=== PATIENT | female | born 2000 | race Caucasian/White ===

== ENCOUNTER 2024-02-18 13:35 | Emergency (ER) | payer BC, SELFPAY ==
[2024-02-18 14:30] VITALS: BP 127/81; PULSE 80; RESP 20; TEMP 36.8; O2SAT 97; BMI 24.8
[2024-02-18 14:39] LABS: Apearance,Urine Clear (Clear); Color,Urine Yellow (Yellow)
[2024-02-18 14:40] LABS: Bilirubin,Urine Negative (Negative); Blood, Urine 3+ (Negative); Glucose,Urine (UA) Negative (Negative); Ketones,Urine Negative (Negative); Protein,Urine Negative (Negative); Urobilinogen,Urine 0.2 EU/dl (0.2)
[2024-02-18 14:41] LABS: UTC Leukocyte Esterase,Urine 2+ (Negative); UTC Nitrate,Urine Negative (Negative)
--- NOTE | 2024-02-18 15:03 | ED_ITS ---
Discharge Plan Disposition Patient Disposition: Home, Self-Care Condition: Good Prescriptions Prescriptions: New cefdinir 300 mg capsule 300 mg PO BID Qty: 20 0RF phenazopyridine [Pyridium] 200 mg tablet 200 mg PO Q8H 2 Days Qty: 6 0RF No Action colestipol 1 gram tablet 1 g PO DAILY Referrals Follow up/Referrals: Dianna Zarco [Primary Care Provider] - See instructions Activity Restrictions/Add. Instructions Additional Instructions/Restrictions: *Increase fluids. Water not Soda or Tea *Start antibiotic immediately and be sure to take as ordered for the FULL length of time although you should start to see improvement over the next 48 hours *Pyridium as needed Remember this medication will turn your urine . This is normal but it will stain what ever it gets on *You should not use Pyridium for more than 48 hours. If so , follow up with your primary physician to review urine culture and ensure that antibiotic is adequate for infection *Be SURE to follow up anytime for new or worsening symptoms with your family doctor. AND in 48 hours for urine culture results with your family doctor, if you do not have a doctor then you may call back to the [facility] for urine culture results and further treatment. We do recommend that you choose and establish care with a Primary Care Physician. ?AND follow up with them ?in 10-14 days to repeat UA to ensure infection is resolved and blood no longer present *Be sure to let your PCP know that we sent urine cultures from the [facility] so they can follow up to ensure that you area the on the correct antibiotic Call your doctor office and make appointment for 48 hours (2 days from today) ?to follow up and get the results of your urine culture and further treatment Clinical Impressions Clinical Impression: UTI (urinary tract infection) Instructions Patient Instructions: DI for Urinary Tract Infection (UTI), Urinary Tract Infection, Cefdinir, Phenazopyridine Print Language Print Language: Nepali Discharge ED Provider: Jodi Jeronimo [facility] HPI General Stated complaint: frequency,burning with urination Mode of Arrival: Ambulatory Source of Information: Patient Limitations: No Limitations Time Seen by Provider: 02/18/24 15:03 Description of Symptoms (Recalled from Triage Doc. by RN): PATIENT C/O ACHE TO BLADDER AREA THAT STARTED TODAY HEENT Symptoms (Recalled from RN notes): No Resp Symptoms (Recalled from RN notes): No Skin Symptoms (Recalled from RN notes): No MS Symptoms (Recalled from RN notes): No Functional Status (Recalled from RN notes): WNL History of Present Illness Provider Complaint: Patient states that she has been feeling achy a little in her back and having urgency, frequency and burning with urination so she came in to get checked worried she may have a UTI Denies hx of kidney stones Related Data Home Medications ?Medication ?Instructions ?Recorded ?Confirmed colestipol 1 gram tablet 1 g PO DAILY 02/18/24 02/18/24 Previous Rx's ?Medication ?Instructions ?Recorded cefdinir 300 mg capsule 300 mg PO BID #20 caps 02/18/24 phenazopyridine 200 mg tablet 200 mg PO Q8H pain 2 days #6 tabs 02/18/24 (Pyridium) Allergies Allergy/AdvReac Type Severity Reaction Status Date / Time No Known Allergies Allergy Verified 02/18/24 14:40 Worker's Comp Is this a Worker's Comp case?: No [facility] Disclaimer: The information contained in this section may have been updated after the patient was seen, as this information can be updated by other users. Social History Smoking Status: Unknown if ever smoked alcohol intake: never current occupational status: employed Travel in the last 8 weeks: None ROS Obtained: Yes All systems reviewed & no additional complaints except as documented and Yes Systems reviewed as appropriate & no additional complaints except as documented Constitutional Constitutional: Reports system reviewed and no additional complaints, except as documented, Reports as per HPI, Denies body ache, Denies chills, Denies fever(s) and Denies lethargy ENT Ears, Nose, Mouth, and Throat: Reports system reviewed and no additional complaints, except as documented and Reports as per HPI Cardiovascular Cardiovascular: Reports system reviewed and no additional complaints, except as documented and Reports as per HPI Respiratory Respiratory: Reports system reviewed and no additional complaints, except as documented and Reports as per HPI Gastrointestinal Gastrointestingal: Reports system reviewed and no additional complaints, except as documented and as per HPI; Denies abdominal pain, nausea or vomiting Genitourinary Female Genitourinary: Reports system reviewed and no additional complaints, except as documented, Reports as per HPI, Reports dysuria, Reports urinary f requency and Reports urinary urgency Physical Exam General General appearance: alert and in no apparent distress ENT ENT exam: Present mucous membranes moist Respiratory Respiratory exam: Present normal lung sounds bilaterally; Absent respiratory distress or wheezes Cardiovascular Cardiovascular exam: Present regular rate, normal rhythm and normal heart sounds Abdominal Exam Abdominal exam: Present soft and normal bowel sounds; Absent distention or tenderness Neurological Exam Neurological exam: Present alert, oriented X3 and normal gait Medical Decision Making Po Inquiry Pt receiving controlled substance: No Po was queried for this patient: No Vital Signs: 02/18/24 14:30 Temperature 98.3 F Temperature Source Oral Pulse Rate [Left Brachial] 80 Respiratory Rate 20 Blood Pressure [Left Arm] 127/81 Blood Pressure Mean [Left Arm] 96 Blood Pressure Source [Left Arm] Automatic Cuff Blood Pressure Position [Left Arm] Sitting 02 Sat by Pulse Oximetry 97 Oxygen Delivery Method Room Air Lab Data Lab results reviewed: Yes I reviewed the patient's lab results. Lab Results 02/18/24 14:37: Urine Color Yellow, Urine Appearance Clear, Urine pH 6.0, Ur Specific Freeland 1.010, Urine Protein Negative, Urine Glucose (UA) Negative, Urine Ketones Negative, Urine Blood 3+, Urine Nitrate Negative, Urine Bilirubin Negative, Urine Urobilinogen 0.2, Ur Leukocyte Esterase 2+ A Orders (Tests/Meds): ORDERS Category Date Time Status Urine Culture Stat Micro 02/18/24 14:38 Ordered
[2024-02-18 15:09] VITALS: BP 127/81; PULSE 80; RESP 20; TEMP 36.8; O2SAT 97
--- NOTE | 2024-02-20 09:53 | PC.NURSE ---
REVIEWED URINE CULTURE RESULTS WITH Nathanael GARZA APRN, NO CHANGES NEEDED AT THIS TIME
== END 2024-02-18 15:11 | disposition home or self-care (01) ==
PROVIDERS: Emergency Provider Nurse Practitioner; PCP Family Medicine
DX: N39.0 Urinary tract infection, site not specified (principal); B96.29 Other Escherichia coli [E. coli] as the cause of diseases classified elsewhere; R30.0 Dysuria; R35.0 Frequency of micturition; M54.59 Other low back pain
CPT/HCPCS: 81003; 87086; 87088; 87186; 99204; 99212; G0463

== ENCOUNTER 2025-02-11 08:15 | Outpatient (CLI) | payer BC, SELFPAY ==
--- NOTE | 2025-02-11 08:30 | US_ITS ---
PROCEDURE: US TRANSVAGINAL CLINICAL INDICATION: Pelvic pain COMPARISON: No exams were available for comparison FINDINGS: Transvaginal sonographic images of the pelvis were obtained. UTERUS: 7.3cm x 4.2cmx 3.1cm anteverted with a combined endometrial thickness of 8.9mm. The endometrium is trilaminar. There is a small amount of fluid superior to the fundus of the uterus. LEFT OVARY: 2.9 cmx2.4cmx2.0cm with a volume of 7.4ml. There are several small peripheral follicles. There is a thin hyperechoic area on the periphery of the ovary which may be endometriosis. RIGHT OVARY: 4.3cmx 3.0cmx2.0cm with a volume of 13.2ml. There is a follicle in the right ovary measuring 1.7 cm x 1.4 cm x 1.0 cm There are multiple other peripheral follicles. Right ovary sits posterior to the uterus. Both ovaries are seen and appear normal. Doppler flow to both ovaries are seen. There is a small amount fluid in the cul-de-sac. There is a small amount of fluid adjacent to each ovary. IMPRESSION: 1. Anteverted uterus normal in shape and size. The endometrium appears normal and trilaminar. 2. Both ovaries are seen and appear multi-cystic. There are multiple peripheral follicles within each ovary. The right ovary has a dominant follicle measuring 1.7 cm. The left ovary has a hyperechoic area on the surface of the ovary which may be endometriosis. 3. There is a small amount of fluid adjacent to each ovary and superior to the fundus of the uterus. There is a small amount of fluid in the cul-de-sac. This fluid could be physiologic or inflammatory. Dictated by: Andre Valero MD 02/11/2025 19:00 Andre Valero MD in OV 02/11/2025 19:00
== END 2025-02-11 23:59 | disposition home or self-care (01) ==
LOC: RAD 08:15
PROVIDERS: PCP Family Medicine; Visit Provider Obstetrics & Gynecology
DX: N85.4 Malposition of uterus (principal); E28.2 Polycystic ovarian syndrome; R93.89 Abnormal findings on diagnostic imaging of other specified body structures; R10.2 Pelvic and perineal pain
CPT/HCPCS: 76830

== ENCOUNTER 2025-02-24 14:39 | Outpatient (CLI) | payer BC, SELFPAY ==
--- OUTSIDE RECORDS SUMMARY | 2025-02-24 14:41 | XMS_ITS | Clinical Summary ---
Author Organization [facility] Address [address] [place] [address] Care Team Providers Care Head Baker Name Role Phone Dianna Zarco DO Primary Care Provider [phone] Pauline Johnson MD Unavailable [phone] Allergies No known active allergies Medications pantoprazole (Protonix) 40 MG EC tablet Take 1 tablet (40 mg) by mouth if needed. 12/05/2021 Active Active Problems No known active problems Family History Medical History Relation Name Comments No Known Problems Brother No Known Problems Father No Known Problems Father's Brother Cancer Maternal Grandfather Mason Bustos No Known Problems Maternal Grandmother Arthritis Mother Jennifer Black Miscarriages / Stillbirths Mother Jennifer Black No Known Problems Mother's Brother Cancer Mother's Sister Summer Barroso Hypertension Other No Known Problems Paternal Grandfather Diabetes Paternal Grandmother Vandana Michelle No Known Problems Sister Relation Name Status Comments Brother Alive Father Alive Father's Brother Alive Maternal Grandfather Mason Bustos Maternal Grandmother Mother Jennifer Black Alive Mother's Brother Alive Mother's Sister Summer Barroso Alive Other Paternal Grandfather Alive Paternal Grandmother Vandana Michelle Alive Sister Alive Social History Tobacco Use Types Packs/Day Years Used Date Smoking Tobacco: Never Smokeless Tobacco: Never Alcohol Use Standard Drinks/Week Comments Never 0 (1 standard drink = 0.6 oz pur e alcohol) PHQ-2 Answer Date Recorded Patient Health Questionnaire-2 Score 0 09/12/2023 Comments No Sex and Gender Information Value Date Recorded Sex Assigned at Not on file Legal Sex Female 6:18 PM EDT Gender Identity Not on file Sexual Orientation Not on file Last Filed Vital Signs Vital Sign Reading Time Taken Comments Blood Pressure 128/94 09/12/2023 3:49 PM EDT Pulse 97 09/12/2023 3:49 PM EDT Temperature 37.2 C (99 F) 09/12/2023 3:49 PM EDT Respiratory Rate 16 09/12/2023 3:49 PM EDT Oxygen Saturation 100% 09/12/2023 3:49 PM EDT Inhaled Oxygen Concentration - - Weight 66.8 kg (147 lb 4.3 oz) 09/12/2023 3:49 P M EDT Height 165.1 cm (5' 5 ) 09/12/2023 3:49 PM EDT Body Mass Index 24.51 09/12/2023 3:49 PM EDT Plan of Treatment Health Maintenance Due Date Last Done Comments [facility]-HIV Screening 2000 [facility]-Hepatitis C Screening 2000 [facility]-Infant/Child/Adol SDOH Screenings 2000 [facility]-Varicella Vaccines (1 of 2 - 13+ 2-dose series) 2013 HPV Vaccines (1 - 3-dose series) 2015 [facility]- SDOH Screenings 2018 [facility]-Adult SDOH Screenings 2018 [facility]-DTaP,Tdap,and Td Vaccines (1 - Tdap) 2019 [facility]-Hepatitis B Vaccines (1 of 3 - 19+ 3-dose series) 2019 [facility]-Depression Screening 09/11/2024 09/12/2023 [id number] Vaccine (3 - 2024- season) 2025 02/26/2021, 01/29/2021 [facility]-Influenza Vaccine (#1) 2025 03/26/2023 [facility]-Pap Smear 09/11/2026 09/12/2023 [facility]-Zoster Vaccines (1 of 2) 2050 [facility]-HIB Vaccines Aged Out No longer e ligible based on patient's age to complete this topic [facility]-Hepatitis A Vaccines Aged Out No longer eligible based on patient's age to complete this topic [facility]-IPV Vaccines Aged Out No longer e ligible based on patient's age to complete this topic [facility]-Pneumococcal Vaccine: Pediatrics (0 to 5 Years) and At-Risk Patients (6 to 49 Years) Aged Out No longer eligible b ased on patient's age to complete this topic [facility]-Rotavirus Vaccines Aged Out No lo nger eligible based on patient's age to complete this topic Procedures Procedure Name Priority Date/Time Associated Diagnosis Comments PAP TEST - CYTOLOGY Routine 09/12/2023 4 :32 PM EDT Pap smear for cervical cancer screening from Last 3 Months or Most Recently Relevant to Health Maintenance Results * Pap Test (09/12/2023 4:32 PM EDT) Case Report Cytology Case: [id number] Authorizing Provider: Stefanie Pepe APRN, Collected: 09/12/2023 1632 CNM Ordering Location: Obstetrics & Gynecology Received: 09/13/2023 1014 First Screen: Zarina Chacon Specimen: ThinPrep Pap Test, Liquid-Based Cervical/Vaginal 09/25/2023 9:01 AM EDT [facility] Interpretation NEGATIVE FOR INTRAEPITHELIAL LESION OR MALIGNANCY 09/25/2023 9:01 AM EDT [facility] at 0901 EDT Specimen Adequacy Satisfactory for evaluation; endocervical/garces sformation zone component present. Slide scanned and imaged by [employer] Imaging System with manual review of all selected albarado. 09/25/2023 9:01 AM EDT [facility] Cervical cytology is a screening test primarily for squamous cancers and precursors and has associated false negative and positive results. New technologies such as liquid based sampling may decrease but will not eliminate all false negative results. Regular screening and follow-up of unexplained clinical signs and symptoms are recommended to minimize false negative results. Please see the ASCCP website (www.asccp.org)fo r followup recommendations. If HPV testing was requested, correlation with the results is suggested (please call Microbiology at [phone] for results). 09/25/2023 9:01 AM EDT [facility] Menstrual Status Cyclic 09/25/19 9:01 AM EDT [facility] Contraceptive History Not Applicable 09/25/2023 9:01 AM EDT [facility] Screening Type Routine Screen 2023 9:01 AM EDT [facility] High Risk? No 09/25/2023 9:01 AM EDT [facility] HPV Testing Requested? Request HPV testing if ASCUS or LSIL. 09/25/2023 9:01 AM EDT [facility] Previous Cancer History No 09/25/2023 9:01 AM EDT [facility] Clinical Information Z12.4 - Pap smear for cervical cancer screening [ICD-10-CM] 09/25/2023 9:01 AM EDT [facility] Last Menstrual Period 08/15/2023 09/25/2023 9:01 AM EDT [facility] Swab Vaginal and cervical cytologic material / Unknown Non-blood Collection / Unknown 09/12/2023 4:32 PM EDT 09/13/2023 10:14 AM EDT Stefanie Pepe APRN, CNM LAB CYTOLOGY ORDERA BLES Final Result Performing Organization Address City/State/[facility] Co de Phone Number [facility] [address] [place] [address] from Last 3 Months or Most Recently Relevant to Health Maintenance Insurance ANTH Care Teams Head Baker Relationship Specialty Start Date End Date Dianna Zarco DO [address] [place] [address] [place] [address] PCP - General 09/12/23 Pauline Johnson MD [address] [place] [id number] 09/12/23
[2025-02-26 10:14] LABS: FSH 6.8 mIU/mL (.); LH 5.4 mIU/mL (.)
== END 2025-02-24 23:59 | disposition home or self-care (01) ==
LOC: LAB 14:39
PROVIDERS: PCP Family Medicine; Visit Provider Obstetrics & Gynecology
DX: N97.0 Female infertility associated with anovulation (principal); R10.2 Pelvic and perineal pain; Z31.69 Encounter for other general counseling and advice on procreation
CPT/HCPCS: 36415; 82166; 83001; 83002; 84144

== ENCOUNTER 2025-02-26 07:51 | Outpatient (CLI) | payer BC, SELFPAY ==
--- OUTSIDE RECORDS SUMMARY | 2025-02-26 07:53 | XMS_ITS | Clinical Summary ---
Author Organization [facility] Address [address] [place] [address] Care Team Providers Care Bore [employer] Operator [employer] Name Role Phone Dianna Zarco DO Primary Care Provider [phone] Pauline Johnson MD Unavailable [phone] Allergies No known active allergies Medications [...] 3-dose series) 2019 [facility]-Depression Screening 09/11/2024 09/12/2023 [id number] Vaccine (3 - 2024- season) 2025 02/26/2021, [...] 4:32 PM EDT) Case Report Cytology Case: [id number] Authorizing Provider: Stefanie Pepe APRN, Collected: 09/12/2023 1632 CNM Ordering Location: Obstetrics & Gynecology Received: 09/13/2023 1014 First Screen: Zarina Chacon Specimen: ThinPrep Pap Test, Liquid-Based Cervical/Vaginal 09/25/2023 9:01 AM EDT [facility] Interpretation NEGATIVE FOR INTRAEPITHELIAL LESION OR MALIGNANCY 09/25/2023 9:01 AM EDT [facility] at 0901 EDT Specimen Adequacy Satisfactory for evaluation; endocervical/garces sformation zone component present. Slide scanned and imaged by [employer] Imaging System with manual review of all selected albarado. 09/25/2023 9:01 AM EDT [facility] Cervical cytology is a screening test [...] results is suggested (please call Microbiology at [phone] for results). 09/25/2023 9:01 AM EDT [facility] Menstrual Status Cyclic 09/25/19 9:01 AM EDT [facility] Contraceptive History Not Applicable 09/25/2023 9:01 AM EDT [facility] Screening Type Routine Screen 2023 9:01 AM EDT [facility] High Risk? No 09/25/2023 9:01 AM EDT [facility] HPV Testing Requested? Request HPV testing if ASCUS or LSIL. 09/25/2023 9:01 AM EDT [facility] Previous Cancer History No 09/25/2023 9:01 AM EDT [facility] Clinical Information Z12.4 - Pap smear for cervical cancer screening [ICD-10-CM] 09/25/2023 9:01 AM EDT [facility] Last Menstrual Period 08/15/2023 09/25/2023 9:01 AM EDT [facility] Swab Vaginal and cervical cytologic material / Unknown Non-blood Collection / Unknown 09/12/2023 4:32 PM EDT 09/13/2023 10:14 AM EDT Stefanie Pepe APRN, CNM LAB CYTOLOGY ORDERA BLES Final Result Performing Organization Address City/State/[facility] Co de Phone Number [facility] [address] [place] [address] from Last 3 Months or Most Recently Relevant to Health Maintenance Insurance ANTH Care Teams [employer] Relationship Specialty Start Date End Date Dianna Zarco DO [address] [place] [address] [place] [address] PCP - General 09/12/23 Pauline Johnson MD [address] [place] [id number] 09/12/23
--- NOTE | 2025-02-26 08:00 | FL_ITS ---
FINAL REPORT CLINICAL HISTORY: Infertility counseling 7.60 mgy .21ft FINDINGS: HYSTEROSALPINGOGRAM Images were submitted for hysterosalpingogram performed by the [facility] service. Uterus shows normal configuration and position. No filling defects are seen. Fallopian tubes have a normal appearance. There is free spillage of contrast into the bilateral adnexal regions. Air kerma dose 7.6 mGy IMPRESSION: No evidence of tubal occlusive disease or uterine anomaly Authenticated and ERN
[2025-02-26] MEDS: IOPAMIDOL-370 (76%);100ML BOTTLE 10 ML IV (09:03)
--- NOTE | 2025-02-26 12:11 | HMH.PROCNOTE ---
[facility] Procedure Note Date: 04/20/23 Time: 08:15 Procedure Note:: Findings: bilateral patent fallopian tubes without hydrosalpinx. No endometrial filling defects noted. Patient was positioned in the dorsal lithotomy position. Speculum was inserted. Cervix and vagina was cleansed with Hibiclens. Tenaculum was placed on anterior lip of the cervix. 20 cc of contrast was drawn up into a syringe and attached to the Justin HSG cannula. Contrast was flushed through cannula to remove air bubbles and ensure patency. Cannula was then inserted into the cervix. Fluoroscopy was initiated with 10 cc of contrast injected into the endometrial cavity. Fluoroscopy demonstrated contrast immediately flowing from endometrial cavity through bilateral fallopian tubes revealing patent bilateral fallopian tubes. Cavity appeared normal shape. Cannula was removed from the cervix. Tenaculum was removed from the cervix. Hemostasis was noted. Speculum removed from the vagina. Patient tolerated the procedure well.
== END 2025-02-26 23:59 | disposition home or self-care (01) ==
LOC: RAD 07:52
PROVIDERS: PCP Family Medicine; Visit Provider Obstetrics & Gynecology
DX: Z31.69 Encounter for other general counseling and advice on procreation (principal); R10.2 Pelvic and perineal pain
CPT/HCPCS: 74740; Q9967

== ENCOUNTER 2025-03-14 10:48 | Outpatient (CLI) | payer BC, SELFPAY ==
--- OUTSIDE RECORDS SUMMARY | 2025-03-14 10:51 | XMS_ITS | Clinical Summary ---
Author Organization [facility] Address [address] [place] [address] Care Team Providers Care Cherry Grower Name Role Phone Dianna Zarco DO Primary Care Provider [phone] Pauline Johnosn MD Unavailable [phone] Allergies No known active allergies Medications [...] [facility]-HIV Screening 2000 [facility]-Hepatitis C Screening 2000 [facility]-/Child/Adol SDOH Screenings 2000 [facility]-Varicella Vaccines (1 of 2 - 13+ 2-dose series) 2013 HPV Vaccines (1 - 3-dose series) 2015 [facility]- SDOH Screenings 2018 [facility]-Adult SDOH Screenings 2018 [facility]-DTaP,Tdap,and Td Vaccines (1 - Tdap) 2019 [facility]-Hepatitis B Vaccines (1 of 3 - 19+ 3-dose series) 2019 [facility]-Depression Screening 09/11/2024 09/12/2023 [id number] Vaccine (3 - 2024- season) 2025 02/26/2021, [...] 4:32 PM EDT) Case Report Cytology Case: [id number] Authorizing Provider: Stefanie Pepe APRN, Collected: 09/12/2023 1632 CNM Ordering Location: Obstetrics & Gynecology Received: 09/13/2023 1014 First Screen: Zarina Chacon Specimen: ThinPrep Pap Test, Liquid-Based Cervical/Vaginal 09/25/2023 9:01 AM EDT [facility] Interpretation NEGATIVE FOR INTRAEPITHELIAL LESION OR MALIGNANCY 09/25/2023 9:01 AM EDT [facility] at 0901 EDT Specimen Adequacy Satisfactory for evaluation; endocervical/garces sformation zone component present. Slide scanned and imaged by [employer] Imaging System with manual review of all selected albarado. 09/25/2023 9:01 AM EDT [facility] Cervical cytology is a screening test [...] results is suggested (please call Microbiology at [phone] for results). 09/25/2023 9:01 AM EDT [facility] Menstrual Status Cyclic 09/25/19 9:01 AM EDT [facility] Contraceptive History Not Applicable 09/25/2023 9:01 AM EDT [facility] Screening Type Routine Screen 2023 9:01 AM EDT [facility] High Risk? No 09/25/2023 9:01 AM EDT [facility] HPV Testing Requested? Request HPV testing if ASCUS or LSIL. 09/25/2023 9:01 AM EDT [facility] Previous Cancer History No 09/25/2023 9:01 AM EDT [facility] Clinical Information Z12.4 - Pap smear for cervical cancer screening [ICD-10-CM] 09/25/2023 9:01 AM EDT [facility] Last Menstrual Period 08/15/2023 09/25/2023 9:01 AM EDT [facility] Swab Vaginal and cervical cytologic material / Unknown Non-blood Collection / Unknown 09/12/2023 4:32 PM EDT 09/13/2023 10:14 AM EDT Stefanie Pepe APRN, CNM LAB CYTOLOGY ORDERA BLES Final Result Performing Organization Address City/State/[facility] Co de Phone Number [facility] [address] [place] [address] from Last 3 Months or Most Recently Relevant to Health Maintenance Insurance ANTH Care Teams Cherry Grower Relationship Specialty Start Date End Date Dianna Zarco DO [address] [place] [address] [place] [address] PCP - General 09/12/23 Pauline Johnson MD [address] [place] [id number] 09/12/23
== END 2025-03-14 23:59 | disposition home or self-care (01) ==
LOC: LAB 10:50
PROVIDERS: PCP Family Medicine; Visit Provider Obstetrics & Gynecology
DX: Z31.69 Encounter for other general counseling and advice on procreation
CPT/HCPCS: 36415; 84144